=== PATIENT | male | born 1940 | race Caucasian/White ===

== ENCOUNTER 2018-12-14 05:20 | Inpatient (IN) | payer MEDICAID ==
[2018-12-14] VITALS (50 sets, daily range): BP systolic 62–275; BP diastolic 24–272
[~2018-12-14] VITALS: Ht 170.2 cm; Wt 74.8 kg
[~2018-12-14 05:20] MED LIST: LACTATED RINGERS 1,000 ML IV SCH
[2018-12-14] MEDS ORDERED: ROCURONIUM BROMIDE 10MG/ML VIAL 5ML IV ONE (06:48)
[2018-12-14] MEDS ORDERED: PROPOFOL 200MG/20ML VIAL IV ONE (06:48)
[2018-12-14] MEDS ORDERED: FENTANYL CITRATE/PF 50MCG/ML 2ML VIAL ONE ×2 (06:48→08:24)
[2018-12-14] MEDS ORDERED: GLYCOPYRROLATE 0.2 MG/ML 2ML VIAL ONE (06:48)
[2018-12-14] MEDS ORDERED: NEOSTIGMINE METHYLSULFATE 1MG/ML 10 ML VIAL ONE (06:48)
[2018-12-14] MEDS ORDERED: GABA-531 PO (06:53)
[2018-12-14] MEDS ORDERED: PHENYLEPHRINE HCL 10 MG/ML 1ML (IV VIAL) IV ONE (07:02)
[2018-12-14] MEDS ORDERED: ONDANSETRON HCL 4MG/2ML INJ IV PRN (07:15)
[2018-12-14] MEDS ORDERED: CEFAZOLIN SODIUM 1000MG/VIAL ONE (07:32)
[2018-12-14] MEDS ORDERED: MORPHINE PCA 50MG/50ML IV PRN (11:30)
[2018-12-14] MEDS ORDERED: ONDANSETRON INJ IV PRN (11:30)
[2018-12-14] MEDS ORDERED: DIPHENHYDRAMINE INJ IV PRN (11:30)
[2018-12-14] MEDS ORDERED: NICARDIPINE 100 MG in SODIUM CHLORIDE 0.9% 60 ML IV PRN (11:30)
[2018-12-14] MEDS ORDERED: NALOXONE INJ IV PRN (11:30)
[2018-12-14] MEDS: DEXT 5%/LACTATED RINGERS 1,000 ML IV SCH ×2 (12:00→16:09)
[2018-12-14] MEDS ORDERED: BISACODYL 5MG TABLET PO PRN (13:15)
[2018-12-14] MEDS ORDERED: IPRATROPIUM/ALBUTEROL 0.5-3(2.5)MG/3ML NEB HHN PRN (13:15)
[2018-12-14] MEDS ORDERED: BENZONATATE 100MG CAPSULE PO PRN (13:15)
[2018-12-14] MEDS ORDERED: CEFAZOLIN SODIUM 1000MG/VIAL IV SCH (14:00)
[2018-12-14] MEDS: CEFAZOLIN 1000MG PREMIX 50 ML IV SCH ×2 (16:08→23:26)
[2018-12-14] MEDS: DOCUSATE SODIUM 100MG CAPSULE PO SCH (16:16)
[2018-12-14] MEDS: ACETAMINOPHEN 650MG/20.3ML UDC PO PRN (20:47)
[2018-12-14] MEDS ORDERED: SODIUM CHLORIDE 0.9% 500 ML IV NR (21:00)
[2018-12-15] VITALS (66 sets, daily range): BP systolic 81–237; BP diastolic 18–229
[2018-12-15] MEDS: DEXT 5%/LACTATED RINGERS 1,000 ML IV SCH ×4 (00:54→23:15)
[2018-12-15 05:08] LABS: BASOPHILS % 0.5 % (0.0-2.0); EOSINOPHILS % 0.4 % (0.0-5.0); HEMATOCRIT. 30.8 % (42.0-52.0); HEMOGLOBIN. 10.6 g/dL (14.0-18.0); LYMPHOCYTES % 13.9 % (20.0-50.0); MEAN CORPUSCULAR HEMOGLOBIN 33.8 pg (28.0-32.0); MEAN CORPUSCULAR VOLUME 98.3 fL (80.0-94.0); MEAN PLATELET VOLUME 7.3 fl (7.4-10.4); MONOCYTES % 12.9 % (2.0-8.0); NEUTROPHILS % 72.3 % (40.0-76.0); PLATELET 227 x1000/uL (130-400); RED BLOOD CELL COUNT 3.13 mill/uL (4.7-6.1); RED CELL DISTRIBUTION WIDTH 13.6 % (11.6-14.6)
[2018-12-15 05:14] LABS: CHLORIDE 108 mEq/L (98-107)
[2018-12-15 05:20] LABS: LDL CHOLESTEROL 53 mg/dL (5-100); PHOSPHORUS 2.6 mg/dL (2.5-4.9)
[2018-12-15 05:22] LABS: HDL CHOLESTEROL 26 mg/dL (40-59)
[2018-12-15] MEDS ORDERED: MORPHINE SULFATE 4 MG/ML CPJ (NOT FOR IM USE) IV PRN (07:15)
[2018-12-15] MEDS: CEFAZOLIN 1000MG PREMIX 50 ML IV SCH (07:41)
[2018-12-15] MEDS: ACETAMINOPHEN 650MG/20.3ML UDC PO PRN ×2 (08:37→23:25)
[2018-12-15] MEDS: DOCUSATE SODIUM 100MG CAPSULE PO SCH ×2 (08:37→17:36)
[2018-12-15] MEDS: HYDROCODONE/ACETAMINOPHEN 5/325MG TABLET PO PRN ×2 (17:36→21:23)
[2018-12-16] VITALS (7 sets, daily range): BP systolic 81–132; BP diastolic 36–74
[2018-12-16] MEDS: DEXT 5%/LACTATED RINGERS 1,000 ML IV SCH ×2 (01:55→15:15)
[2018-12-16 07:29] LABS: BASOPHILS % 0.6 % (0.0-2.0); EOSINOPHILS % 1.1 % (0.0-5.0); HEMATOCRIT. 31.4 % (42.0-52.0); HEMOGLOBIN. 10.7 g/dL (14.0-18.0); LYMPHOCYTES % 10.9 % (20.0-50.0); MEAN CORPUSCULAR HEMOGLOBIN 33.4 pg (28.0-32.0); MEAN CORPUSCULAR VOLUME 97.8 fL (80.0-94.0); MEAN PLATELET VOLUME 7.9 fl (7.4-10.4); MONOCYTES % 12.7 % (2.0-8.0); NEUTROPHILS % 74.7 % (40.0-76.0); PLATELET 206 x1000/uL (130-400); RED BLOOD CELL COUNT 3.21 mill/uL (4.7-6.1); RED CELL DISTRIBUTION WIDTH 13.6 % (11.6-14.6)
[2018-12-16 07:30] LABS: CHLORIDE 107 mEq/L (98-107)
[2018-12-16] MEDS: DOCUSATE SODIUM 100MG CAPSULE PO SCH ×2 (08:31→17:00)
[2018-12-16] MEDS: HYDROCODONE/ACETAMINOPHEN 5/325MG TABLET PO PRN ×2 (11:10→16:57)
[2018-12-17] VITALS: BP 124/58
[2018-12-17 04:00] VITALS: BP 118/62
[2018-12-17] MEDS: DEXT 5%/LACTATED RINGERS 1,000 ML IV SCH ×3 (04:28→17:10)
[2018-12-17 06:24] LABS: BASOPHILS % 0.5 % (0.0-2.0); EOSINOPHILS % 0.9 % (0.0-5.0); HEMATOCRIT. 27.9 % (42.0-52.0); HEMOGLOBIN. 9.7 g/dL (14.0-18.0); LYMPHOCYTES % 13.3 % (20.0-50.0); MEAN CORPUSCULAR HEMOGLOBIN 33.8 pg (28.0-32.0); MEAN CORPUSCULAR VOLUME 97.7 fL (80.0-94.0); MEAN PLATELET VOLUME 8.3 fl (7.4-10.4); MONOCYTES % 12.7 % (2.0-8.0); NEUTROPHILS % 72.6 % (40.0-76.0); PLATELET 206 x1000/uL (130-400); RED BLOOD CELL COUNT 2.86 mill/uL (4.7-6.1); RED CELL DISTRIBUTION WIDTH 13.1 % (11.6-14.6)
[2018-12-17 06:26] LABS: CHLORIDE 106 mEq/L (98-107)
[2018-12-17 08:00] VITALS: BP 110/67
[2018-12-17] MEDS ORDERED: POTASSIUM CHLORIDE 20MEQ/PACKET PO NR (09:00)
[2018-12-17] MEDS: DOCUSATE SODIUM 100MG CAPSULE PO SCH ×2 (09:17→17:09)
[2018-12-17] MEDS: HYDROCODONE/ACETAMINOPHEN 5/325MG TABLET PO PRN ×2 (09:19→22:15)
[2018-12-17 12:00] VITALS: BP 112/61
[2018-12-17 15:53] VITALS: BP 123/68
[2018-12-17] MEDS: LACTULOSE 20G/30ML UDC PO SCH ×2 (17:58→22:13)
[2018-12-17 20:00] VITALS: BP 134/65
[2018-12-18] VITALS: BP 134/70
[2018-12-18 04:00] VITALS: BP 129/62
[2018-12-18] MEDS: HYDROCODONE/ACETAMINOPHEN 5/325MG TABLET PO PRN ×2 (06:26→12:57)
[2018-12-18] MEDS: DEXT 5%/LACTATED RINGERS 1,000 ML IV SCH ×2 (07:15→12:57)
[2018-12-18 07:18] LABS: BASOPHILS % 0.7 % (0.0-2.0); EOSINOPHILS % 2.8 % (0.0-5.0); HEMOGLOBIN. 9.7 g/dL (14.0-18.0); LYMPHOCYTES % 17.6 % (20.0-50.0); MEAN CORPUSCULAR HEMOGLOBIN 33.5 pg (28.0-32.0); MEAN CORPUSCULAR VOLUME 96.7 fL (80.0-94.0); MEAN PLATELET VOLUME 7.5 fl (7.4-10.4); MONOCYTES % 12.9 % (2.0-8.0); PLATELET 254 x1000/uL (130-400); RED CELL DISTRIBUTION WIDTH 13.3 % (11.6-14.6)
[2018-12-18 07:31] LABS: CHLORIDE 107 mEq/L (98-107)
[2018-12-18 08:00] VITALS: BP 126/64
[2018-12-18] MEDS: LACTULOSE 20G/30ML UDC PO SCH (08:40)
[2018-12-18] MEDS: DOCUSATE SODIUM 100MG CAPSULE PO SCH (08:41)
[2018-12-18] MEDS ORDERED: DOCUSATE SODIUM 100MG CAPSULE PO SCH (09:00)
[2018-12-18 11:56] VITALS: BP 131/60
[2018-12-18 16:25] VITALS: BP 138/68
== END 2018-12-18 18:16 | disposition home or self-care (01) | DRG 304 ==
LOC: EDSTATUS 07:00 → MICUNO 10:30 → 6EST 12-16 03:37
PROVIDERS: ADMIT Internal Medicine; ATTEND Internal Medicine
PROC: 0SG1071 Fusion of 2 or more Lumbar Vertebral Joints with Autologous Tissue Substitute, Posterior Approach, Posterior Column, Open Approach (ICD-10-PCS; principal; 2018-12-14)
DX: M48.061 Spinal stenosis, lumbar region without neurogenic claudication (principal); G82.50 Quadriplegia, unspecified; E46 Unspecified protein-calorie malnutrition; D64.9 Anemia, unspecified; M47.16 Other spondylosis with myelopathy, lumbar region; M43.10 Spondylolisthesis, site unspecified; E87.1 Hypo-osmolality and hyponatremia; E87.6 Hypokalemia; I10 Essential (primary) hypertension; M47.9 Spondylosis, unspecified
CPT/HCPCS: 36415; 72100; 76000; 80048; 80061; 83036; 83735; 84100; 84443; 86850; 86900; 88304; 88311; 95863; 95925; 95926; 95928; 95929; 97116; 97162; 97166; 97530; 97535; C1713; C1893; J0690; J2270; J2370; J2704; J2710; J3010; J3490; J7121